=== PATIENT | male | born 2000 | race Caucasian/White ===

== ENCOUNTER 2019-10-07 13:15 | Emergency (ER) | payer SELFPAY ==
[2019-10-07 13:27] VITALS: BP 166/98; PULSE 75; RESP 18; TEMP 36.6; O2SAT 98
--- NOTE | 2019-10-07 13:36 | ED.DENTAL ---
HPI - Dental/Oral General Chief complaint: Dental/Oral Stated complaint: tooth pain Source: patient Mode of arrival: ambulatory Limitations: no limitations History of Present Illness HPI Narrative: Pain in molar #2, onset 4 days ago. Right jaw feels swollen. Similar pain several months ago which resolved after a course of antibiotics. Pain is tolerably relieved with ibuprofen. Severity: moderate Exacerbating factors: chewing, cold and heat Context: history of dental caries Associated symptoms: fever Related Data Allergies Allergy/AdvReac Type Severity Reaction Status Date / Time No Known Allergies Allergy Unknown Unverified 04/26/19 21:16 Review of Systems Constitutional: Constitutional: Denies chills and Denies fever(s) ENT: Comments: no ear or throat pain. Gastrointestinal: Gastrointestinal: Denies nausea PMFSH Past Medical History Medical History (Updated 10/07/19 @ 16:22 by Piter Logan MD) Patient denies significant medical history Social History Social History (Updated 10/07/19 @ 13:35 by Nupur Coles RN) Tobacco type: e-cigarettes Alcohol intake: never Substance use type: does not use Exam Const: General: healthy appearing and no acute distress HENMT: Other: No facial, jaw or neck swelling. No redness or warmth Able to fully open and close mouth. Tooth #2 is partially broken. Painful when percussed. No gum swelling or drainage. Posterio orophaynx without swelling or asymmetry. Neck: Neck: no lymphadenopathy noted and other (Tender in right ant. cervical node region without enlargement of nodes. ) Course Vital Signs Vital signs: Vital Signs Temperature 36.6 C 10/07/19 13:27 Pulse Rate 75 10/07/19 13:27 Respiratory Rate 18 10/07/19 13:27 Blood Pressure 166/98 H 10/07/19 13:27 Pulse Oximetry 98 10/07/19 13:27 Temperature 36.6 C 10/07/19 13:27 Pulse Rate 80 10/07/19 13:39 Respiratory Rate 10/07/19 13:39 Blood Pressure 140/85 10/07/19 13:39 Pulse Oximetry 98 10/07/19 13:27 MDM - Dental/Oral MDM Narrative Medical decision making narrative: Tooth abscess. I explained I will start tx. with amoxicillin, which may not be effective. See instructions. Discharge Plan Discharge Clinical Impression: Dental abscess Patient Disposition: Home, Self-Care Condition: Stable Instructions: Antibiotic Form, Dental Abscess (ED) Additional Instructions: Follow up at [facility] for dental evaluation Return if worse Be evaluated in 3 days if not improved. Prescriptions: New amoxicillin 500 mg capsule 500 mg PO TID Qty: 21 RF: 0 Follow-up/Referrals: PHYSICIAN NOT ON STAFF,NONSTAFF [Primary Care Provider] - Stand Alone Forms: Work/School Release IP Time of Disposition: 13:38 Discharge Date/Time: 10/07/19 13:44
[2019-10-07 13:39] VITALS: BP 140/85; PULSE 80; RESP 20
== END 2019-10-07 13:44 | disposition home or self-care (01) ==
PROVIDERS: Emergency Provider Family Medicine
DX: K04.7 Periapical abscess without sinus (principal)
CPT/HCPCS: 99283

== ENCOUNTER 2023-09-22 14:12 | Emergency (ER) | payer SELFPAY ==
[2023-09-22 14:20] VITALS: BP 135/81; PULSE 96; RESP 18; TEMP 37; O2SAT 99
--- NOTE | 2023-09-22 14:34 | ED.URI ---
HPI - URI/Sore Throat General Chief Complaint: Upper Respiratory Infection Stated Complaint: cough/congestion/throat Time Seen by Provider: 09/22/23 14:34 Source: patient, RN notes reviewed and old records reviewed Mode of arrival: ambulatory Limitations: no limitations History of Present Illness HPI Narrative: 23-year-old male presents to [facility] with complaints of 3 day history cough congestion and sore throat which has increased in last 2 days. Patient reports no body aches or any known fevers has taken 1 dose of Benadryl for his symptoms. Patient reports that he is suppose to work tonight but his cough is too bad to go to work. Patient reports that a abbie 3 isles over offered him an inhaler for his cough at work yesterday. MD elicited complaint: cough and sore throat Onset (ago): day(s) (3 days) Severity: moderate Able to tolerate fluids by mouth: Yes Treatments prior to arrival: other (one dose of Benadryl) Related Data Allergies Allergy/AdvReac Type Severity Reaction Status Date / Time No Known Allergies Allergy Unknown Verified 09/22/23 14:19 Review of Systems Review of Systems: CONSTITUTIONAL: Denies malaise, chills, sweats, or fever. EYES: Denies visual changes, redness, or discharge. ENT: Reports rhinorrhea, congestion,no sinus pain, no otalgia and some sore throat. CARDIOVASCULAR: Denies chest pain, palpitations, or edema. RESPIRATORY: Reports cough.? Denies dyspnea. GASTROINTESTINAL: Denies abdominal pain, nausea, vomiting, diarrhea SKIN: Denies rash or itching. MUSCULOSKELETAL: Denies myalgia. NEUROLOGIC: Denies headache. All systems reviewed & are unremarkable except as noted in HPI and below PMFSH Past Medical History Medical History (Updated 09/24/23 @ 10:36 by Opal Weinberg NP) ADHD (attention deficit hyperactivity disorder) Strep throat Social History Social History (Updated 09/22/23 @ 14:56 by Opal Weinberg NP) Smoking status: Current every day smoker Tobacco type: cigarettes Alcohol intake: never Substance use type: does not use Comments At time of signature, agree with nursing past medical, surgical, social and family history. There is no relevant family history pertinent to the presenting complaint Exam Narrative: GENERAL: Well-appearing, well-nourished, and in no acute distress. HEAD: Normocephalic EYES: PERRLA, conjunctivae clear ENT: Nares clear, turbinates edematous and erythematous, clear discharge. Mucous membranes moist. TM pearly nichols with dull light reflex bilaterally; no tragal tenderness. Oropharynx erythematous without lesions. Tonsils not enlarged and without exudate, no drooling, no hoarseness, no trismus, uvula midline.post nasal drainage NECK: Supple. No lymphadenopathy CHEST: Clear to auscultation, breath sounds equal. No wheezing, rhonchi, rales, or stridor. No respiratory distress, speaks in full sentences.cough noted SAO2 99% on room air HEART: Regular rate and rhythm. No murmur heard. SKIN: Warm, dry, no rash. NEURO: Alert and oriented x3. PSYCH: Normal mood and affect Course Course Emergency Course: Patient is aware of diagnosis, understands and agrees to treatment plan.? Anticipatory guidance given.? Patient agrees to follow-up as directed and is aware of reasons to seek care at the emergency department. Portions of this record may have been created with voice recognition software Level of Care: Express Care Visit Vital Signs Vital signs: Vital Signs Temperature 37.0 C 09/22/23 14:20 Pulse Rate 96 09/22/23 14:20 Respiratory Rate 18 09/22/23 14:20 Blood Pressure 135/81 09/22/23 14:20 Pulse Oximetry 99 09/22/23 14:20 Oxygen Delivery Room Air 09/22/23 14:20 Temperature 37.0 C 09/22/23 14:35 Pulse Rate 96 09/22/23 14:35 Respiratory Rate 18 09/22/23 14:35 Blood Pressure 135/81 09/22/23 14:35 Pulse Oximetry 99 09/22/23 14:35 Oxygen Delivery Room Air
[2023-09-22 14:35] VITALS: BP 135/81; PULSE 96; RESP 18; TEMP 37; O2SAT 99
== END 2023-09-22 14:55 | disposition home or self-care (01) ==
PROVIDERS: Emergency Provider Registered Nurse
DX: J06.9 Acute upper respiratory infection, unspecified (principal); Z20.822 Contact with and (suspected) exposure to COVID-19; F17.210 Nicotine dependence, cigarettes, uncomplicated
CPT/HCPCS: 87081; 87426; 87804; 87880; 99213; G0463

== ENCOUNTER 2024-02-06 18:44 | Emergency (ER) | payer SELFPAY ==
[2024-02-06 18:49] VITALS: BP 150/78; PULSE 98; RESP 16; TEMP 36.9; O2SAT 98
--- NOTE | 2024-02-06 18:59 | ED.MALEGU ---
HPI - Male Genitourinary General Chief complaint: Urogenital-Male Stated complaint: Urinary Problem Time Seen by Provider: 02/06/24 19:40 Source: patient and RN notes reviewed Mode of arrival: ambulatory Limitations: no limitations History of Present Illness HPI Narrative: 23-year-old male presents with concern of for an episode of hematuria today. He reports he had discomfort during the episode of hematuria. He denies any urgency, fever, body aches, chills, sweats, back pain, abdominal pain. He does report occasional white penile discharge. He denies lesions, open sores. His has herpes simplex 2, he is interested in testing however he does not have any lesions or sores. MD Complaint: other (Hematuria) Related Data Allergies Allergy/AdvReac Type Severity Reaction Status Date / Time No Known Allergies Allergy Unknown Verified 09/22/23 14:19 Review of Systems Review of Systems: CONSTITUTIONAL: Denies malaise, chills, sweats, or fever. CARDIOVASCULAR: Denies chest pain, palpitations, or edema. RESPIRATORY: Denies cough or dyspnea. GASTROINTESTINAL: Denies abdominal pain, nausea, vomiting, diarrhea GENITOURINARY: Denies dysuria, frequency, urgency, suprapubic pressure. Denies flank pain. Reports hematuria and occasional penile discharge SKIN: Denies rash or itching. MUSCULOSKELETAL: Denies back pain or myalgia. All systems reviewed & are unremarkable except as noted in HPI and below PMFSH Past Medical History Medical History (Updated 02/06/24 @ 19:46 by Kyra Umaña NP) ADHD (attention deficit hyperactivity disorder) Strep throat Social History Social History (Updated 09/22/23 @ 14:56 by Opal Weinberg NP) Smoking status: Current every day smoker Tobacco type: cigarettes Alcohol intake: never Substance use type: does not use Comments At time of signature, agree with nursing past medical, surgical, social and family history. There is no relevant family history pertinent to the presenting complaint Exam Narrative: GENERAL: Well-appearing, well-nourished, and in no acute distress. HEAD: Normocephalic. EYES: PERRLA, conjunctivae clear. NECK: Supple. No lymphadenopathy CHEST: Clear to auscultation. No respiratory distress. HEART: Regular rate and rhythm. ABDOMEN: Soft, nontender upon palpation, nondistended, normal active bowel sounds, no palpable or pulsatile masses, no guarding. No CVA tenderness SKIN: Warm, dry, no rash. NEURO: Alert and oriented x3. PSYCH: Normal mood and affect Course Course Emergency Course: Patient was interested in testing for herpes, he was given information for [facility]. Patient's UA is relatively unremarkable, we will do a culture and not treat for anything and still STD and culture results come back Patient is aware of diagnosis, understands and agrees to treatment plan. Anticipatory guidance given. Patient agrees to follow-up as directed and is aware of reasons to seek care at the emergency department. Portions of this record may have been created with voice recognition software Level of Care: Express Care Visit Vital Signs Vital signs: Vital Signs Temperature 98.4 F 02/06/24 18:49 Pulse Rate 98 02/06/24 18:49 Respiratory Rate 16 02/06/24 18:49 Blood Pressure 150/78 H 02/06/24 18:49 Pulse Oximetry 98 02/06/24 18:49 Oxygen Delivery Room Air 02/06/24 18:49 Temperature 98.4 F 02/06/24 18:49 Pulse Rate 98 02/06/24 18:49 Respiratory Rate 16 02/06/24 18:49 Blood Pressure 150/78 H 02/06/24 18:49 Pulse Oximetry 98 02/06/24 18:49 Oxygen Delivery Room Air 02/06/24 18:49 Reviewed. MDM - Male Genitourinary MDM Narrative Medical decision making narrative: I evaluated this [facility]. History is obtained from patient who is an independent historian and physical exam was performed.? Available medical records were reviewed. ? Exam findings and relevant testing show no acute concerns or morgan
[2024-02-07 20:41] LABS: Trichomonas Vag PCR DETECTED (NOT DETECTE)
[2024-02-07 21:19] LABS: Chlamydia trachomatis NOT DETECTED (NOT DETECTE); Neisseria gonorrhoeae PCR NOT DETECTED (NOT DETECTE)
== END 2024-02-06 19:54 | disposition home or self-care (01) ==
PROVIDERS: Emergency Provider Nurse Practitioner
DX: R31.9 Hematuria, unspecified (principal); A59.9 Trichomoniasis, unspecified; F17.210 Nicotine dependence, cigarettes, uncomplicated
CPT/HCPCS: 81003; 87086; 87491; 87591; 87661; 99213; G0463

== ENCOUNTER 2024-06-05 16:20 | Emergency (ER) | payer BC, SELFPAY ==
--- NOTE | ~2024-06-05 | XR_ITS ---
EXAMINATION: XR chest 1V portable 06/05/2024 16:43 INDICATION: Cough and congestion PROCEDURE: AP portable chest COMPARISON: No prior studies for comparison. FINDINGS: The lungs are clear. The cardiomediastinal silhouette is within normal limits. There are no pleural effusions. There is no pneumothorax suspected. IMPRESSION: 1: NO ACUTE CARDIOPULMONARY DISEASE. Reviewed, dictated and finalized at location B.
[2024-06-05 16:26] VITALS: BP 159/94; PULSE 125; RESP 20; TEMP 36.4; O2SAT 94
[2024-06-05 16:31] VITALS: O2SAT 94
[2024-06-05] MEDS: ACETAMINOPHEN 325 MG TABLET 650 MG PO (16:36)
[2024-06-05 16:40] VITALS: PULSE 111; RESP 20; O2SAT 93
--- NOTE | 2024-06-05 16:42 | PC.NURSE ---
covid/flu/rsv swab collected same time as strep test and sent to lab
[2024-06-05] MEDS: IPRATROPIUM 0.5 MG/ALBUTEROL SULFATE 2.5 MG AMPUL.NEB 3 ML INHALATION (16:43)
[2024-06-05 16:48] VITALS: PULSE 102; RESP 20; O2SAT 100
--- NOTE | 2024-06-05 17:00 | PC.NURSE ---
RN attempted to call lab to come draw patient, no answer.
--- NOTE | 2024-06-05 17:12 | PC.NURSE ---
RN attempted to call lab again. Mimi answered, will be right over
--- NOTE | 2024-06-05 17:18 | PC.NURSE ---
lab at bedside.
--- NOTE | 2024-06-05 17:35 | PC.NURSE ---
Lab at bedside for bloodwork.
[2024-06-05 17:55] LABS: Basophils Absolute Auto 0.06 K/mm3 (0.00-0.10); Basophils Percent Auto 0.3 % (0.0-1.0); Eosinophils Absolute Auto 0.36 K/mm3 (0.02-0.50); Hematocrit 42.4 % (40.0-54.0); Hemoglobin 14.3 g/dL (14.0-18.0); Immature Granulocyte Absolute 0.11 K/mm3 (0.00-0.00); Immature Granulocyte Percent A 0.6 % (0.0-0.0); Lymphocytes Absolute Auto 2.37 K/mm3 (1.10-4.50); Lymphocytes Percent Auto 13.2 % (18.0-42.0); Mean Corpuscular HGB Conc 33.7 g/dL (32-36); Mean Corpuscular Hemoglobin 29.4 pg (27.0-31.0); Mean Corpuscular Volume 87.1 fL (78.0-102.0); Mean Platelet Volume 8.8 fl (8.7-11.0); Monocytes Absolute Auto 1.45 K/mm3 (0.10-0.90); Monocytes Percent Auto 8.1 % (2.0-11.0); Neutrophils Absolute Auto 13.55 K/mm3 (1.70-7.20); Neutrophils Percent Auto 75.8 % (50.0-70.0); Platelet Count Result 317 K/mm3 (150-420); Red Blood Count 4.87 M/mm3 (4.70-6.10); Red Cell Distribution Width 12.1 % (11.6-14.4); White Blood Count 17.9 K/mm3 (4.8-10.8)
[2024-06-05 18:07] VITALS: BP 137/79; PULSE 94; RESP 17; O2SAT 97
[2024-06-05 18:13] LABS: Alanine Aminotransferase 24 U/L (16-63); Albumin Level 3.5 g/dL (3.4-5.0); Alkaline Phosphatase 88 U/L (46-116); Anion Gap 10 mmol/L (4-12); Aspartate Amino Transferase 19 U/L (15-37); Bilirubin,Total 0.7 mg/dL (0.00-1.00); Blood Urea Nitrogen 9 mg/dL (7-18); Calcium 9.2 mg/dL (8.5-10.1); Carbon Dioxide 28 mmol/L (21-32); Chloride 99 mmol/L (98-108); Estimated CRCL calculation 113 ml/min; Estimated Glomerular Filt Rate > 60; Glucose 100 mg/dL (70-99); Osmolality Calculated 282 mOsm/kg (285-295); Potassium 3.7 mmol/L (3.5-5.1); Sodium 137 mmol/L (136-145); Total Protein 7.4 g/dL (6.4-8.2)
[2024-06-05 19:01] LABS: Strep Group A RT-PCR NOT DETECTED (Negative)
[2024-06-05 19:11] LABS: Influenza A QL RT-PCR Negative (Negative); Influenza B QL RT-PCR Negative (Negative); RSV RNA, RT-PCR Negative (Negative); SARS-CoV-2 RNA PCR Negative (Negative)
--- NOTE | 2024-06-05 19:14 | ED.URI ---
HPI - URI/Sore Throat General Chief Complaint: Upper Respiratory Infection Stated Complaint: flu-like symptoms Time Seen by Provider: 06/05/24 16:30 Source: patient Mode of arrival: ambulatory Limitations: no limitations History of Present Illness HPI Narrative: This is 24-year-old male presents with shortness of breath and cough that is productive of clear sputum with some currently no fevers but patient states that he had a fever of 100.4 earlier there is no chest pain or chest tightness no nausea vomiting no abdominal pain. MD elicited complaint: cough and nasal congestion Onset (ago): day(s) Consistency: constant Severity: moderate Description of mucous: clear Related Data Allergies Allergy/AdvReac Type Severity Reaction Status Date / Time No Known Allergies Allergy Unknown Verified 06/05/24 16:28 Review of Systems Review of Systems: All systems reviewed & are unremarkable except as noted in HPI and below PMFSH Past Medical History Medical History ADHD (attention deficit hyperactivity disorder) Strep throat Social History Social History Smoking status: Current every day smoker Tobacco type: cigarettes Alcohol intake: never Substance use type: does not use Exam Const: General: healthy appearing Nutritional Appearance: well nourished Orientation/consciousness: patient oriented x3 Limitations: no limitations HENMT: Head: normal to inspection Eyes: Conjunctivae: conjunctivae normal Pupils: Equal, round and reactive pupils present Neck: Neck: normal visual inspection and no lymphadenopathy Chest: Chest palpation & inspection: normal inspection of the chest Resp: Effort & Inspection: normal respiratory effort Auscultation: clear to auscultation bilaterally Cardio: Rate: regular rate Rhythm: regular rhythm GI: Auscultation: normal bowel sounds Skin: General skin exam: normal color Rashes: no rashes Course Course Emergency Course: Patient had DuoNebs and initially O2 sats 94% on room air after DuoNebs patient O2 sats at 97% on room air he is afebrile heart rate is down to 94 from 09/13, with cough and congestion and some mild shortness of breath chest x-ray revealed no acute cardiopulmonary abnormality[place] [id number], will give a dose of ceftriaxone IM. Vital Signs Vital signs: Vital Signs Temperature 36.4 C 06/05/24 16:26 Pulse Rate 125 H 06/05/24 16:26 Respiratory Rate 20 06/05/24 16:26 Blood Pressure 159/94 H 06/05/24 16:26 Pulse Oximetry 94 06/05/24 16:26 Oxygen Delivery Room Air 06/05/24 16:26 Temperature 36.4 C 06/05/24 16:26 Pulse Rate 94 06/05/24 18:07 Respiratory Rate 17 06/05/24 18:07 Blood Pressure 137/79 06/05/24 18:07 Pulse Oximetry 97 06/05/24 18:07 Oxygen Delivery Room Air 06/05/24 16:31 MDM - URI/Sore Throat Lab Data 06/05/24 17:43 06/05/24 17:43 Labs: Lab Results 06/05/24 Range/Units 17:43 WBC 17.9 H (4.8-10.8) K/mm3 RBC 4.87 (4.70-6.10) M/mm3 Hgb 14.3 (14.0-18.0) g/dL Hct 42.4 (40.0-54.0) % MCV 87.1 (78.0-102.0) fL MCH 29.4 (27.0-31.0) pg MCHC 33.7 (32-36) g/dL RDW 12.1 (11.6-14.4) % Plt Count 317 (150-420) K/mm3 MPV 8.8 (8.7-11.0) fl Immature Gran % (Auto) 0.6 H (0.0-0.0) % Neut % (Auto) 75.8 H (50.0-70.0) % Lymph % (Auto) 13.2 L (18.0-42.0) % [place] % (Auto) 8.1 (2.0-11.0) % Eos % (Auto) 2.0 (1.0-6.0) % Baso % (Auto) 0.3 (0.0-1.0) % Lymph # (Auto) 2.37 (1.10-4.50) K/mm3 [place] # (Auto) 1.45 H (0.10-0.90) K/mm3 Eos # (Auto) 0.36 (0.02-0.50) K/mm3 Baso # (Auto) 0.06 (0.00-0.10) K/mm3 Abs Immat Gran (auto) 0.11 H (0.00-0.00) K/mm3 Absolute Neuts (auto) 13.55 H (1.70-7.20) K/mm3 Absolute Nucleated RBC 0.00 (0.00-0.00) K/mm3 Nucleated RBC % 0.0 (0-0.0) % Sodium 137 (136-145)
[2024-06-05] MEDS: cefTRIAXone 1 GM, LIDOCAINE HCL 1% LOCAL INJ 2.1 ML IM (19:22)
== END 2024-06-05 19:26 | disposition home or self-care (01) ==
PROVIDERS: Emergency Provider Emergency Medicine
DX: J06.9 Acute upper respiratory infection, unspecified (principal); F17.210 Nicotine dependence, cigarettes, uncomplicated; Z20.822 Contact with and (suspected) exposure to COVID-19
CPT/HCPCS: 36415; 71045; 80053; 85025; 87637; 87651; 94640; 96372; 99283; A9270; J0696; J2003